=== PATIENT | male | born 1950 | race African-American/Black ===

== ENCOUNTER 2017-10-07 11:42 | Emergency (ER) | payer MEDICARE, OTHER ==
[~2017-10-07] VITALS: Ht 180.3 cm; Wt 78.2 kg
[2017-10-07] MEDS ORDERED: HYDR12CA PO (11:58)
[2017-10-07] MEDS ORDERED: FINA5TAB2 PO (11:58)
[2017-10-07] MEDS ORDERED: METOCLOPRAMIDE INJ 10MG/2ML VIAL (J2765) IV ONE (12:15)
[2017-10-07] MEDS ORDERED: ONDANSETRON 4MG/2ML VIAL (J2405) IV PRN (12:15)
[2017-10-07 12:47] LABS: BASO % 0.2 % (0.0-1.0); EOS # 0.2 10^3/uL (0.0-0.50); EOS % 3.4 % (0.0-3.0); LYMPH % 23.6 % (24.0-44.0); MEAN CORPUSCULAR HEMOGLOBIN 33.4 pg (27.0-33.0); MEAN CORPUSCULAR HGB CONC 34.2 g/dl (32.0-36.5); MEAN CORPUSCULAR VOLUME 97.7 fl (80.0-96.0); MONO # 0.3 10^3/uL (0.0-0.8); NEUTROPHILS # 2.9 10^3/uL (1.8-7.7); NEUTROPHILS % 65.8 % (36.0-66.0); PLATELET COUNT, AUTOMATED 252 10^3/uL (150-450); RED CELL DISTRIBUTION WIDTH 12.3 % (11.5-14.5); WHITE BLOOD COUNT 4.4 10^3/uL (4.0-10.0)
--- NOTE | 2017-10-07 12:50 | REP ---
CT Head without contrast HISTORY: Headache COMPARISON: None There is no intraparenchymal hemorrhage, acute infarct or mass. The ventricular system is normal in appearance. A small 7 mm Is evidence of subdural hematoma is present overlying the right frontal and parietal lobes. There is no midline shift. There is no fracture. Mucosal thickening is present in the ethmoid sinuses. IMPRESSION: There is a small 7 mm subacute subdural hematoma overlying the right frontal and parietal lobes. There is no midline shift. Results were called to the emergency room at 12:40 p.m. this date. Signed by Eric Nation MD 10/07/2017 12:41 P
[2017-10-07 13:20] LABS: INR 0.99
[2017-10-07 13:20] LABS: ALBUMIN 3.6 GM/DL (3.2-5.2); ALBUMIN/GLOBULIN RATIO 0.82 (1.00-1.93); ALKALINE PHOSPHATASE 48 U/L (45-117); ALT/SGPT 26 U/L (12-78); ANION GAP 11 MEQ/L (8-16); AST/SGOT 26 U/L (7-37); BILIRUBIN,TOTAL 0.3 MG/DL (0.2-1.0); BLOOD UREA NITROGEN 16 MG/DL (7-18); CALCIUM LEVEL 9.1 MG/DL (8.8-10.2); CARBON DIOXIDE LEVEL 26 MEQ/L (21-32); CHLORIDE LEVEL 105 MEQ/L (98-107); CREATININE FOR GFR 1.15 MG/DL (0.70-1.30); GLOMERULAR FILTRATION RATE > 60.0 (>49); GLUCOSE, FASTING 92 MG/DL (80-110); POTASSIUM SERUM 4.3 MEQ/L (3.5-5.1); SODIUM LEVEL 142 MEQ/L (136-145)
[2017-10-07] MEDS ORDERED: POTA20TA PO (13:22)
[2017-10-07] MEDS ORDERED: VIAG100T PO (13:24)
[2017-10-07] MEDS ORDERED: FLOM5CAP PO (13:24)
[2017-10-07] MEDS ORDERED: ASPI81CH32 PO (13:25)
[2017-10-07] MEDS ORDERED: D-101000 PO (13:26)
[2017-10-07] MEDS ORDERED: VITMTA PO (14:19)
[2017-10-07] MEDS ORDERED: PROHANCE 279.3MG/ML 15ML VIAL (A9576) As Ordered ONE (16:27)
[2017-10-07 18:15] VITALS: BP 165/66
--- NOTE | 2017-10-07 18:27 | REP ---
MRI BRAIN WITHOUT CONTRAST: 10/07/2017. Clinical history: Subacute subdural hematoma right frontoparietal region on CT earlier today. Comparison: CT 10/07/2017. Technique: Sagittal T1 with axial T1, T2, FLAIR, gradient echo, diffusion-weighted images with ADC mapping sequences. Findings. Lateral ventricles are midline, symmetric and without dilatation or displacement. Third and fourth ventricles are midline and also without dilatation. The smith-white junction differentiation was well maintained. The basal ganglia are symmetric and normal. There is a thin subacute right frontoparietal subdural hematoma, its maximum thickness is about 5 mm. On the FLAIR images, it is hyperintense; on the T2 images it is hypointense to CSF and it is slightly hyperintense to CSF on T1. Gradient-echo images show hyperintense signal in this collection. It subtly compresses the right frontal cortex posterior to the frontal pole. The sulci are only minimally effaced though and no midline shift is noted nor edema in the white matter tracts. There are a couple of punctate hyperintense T2 and FLAIR foci in the periventricular region left posterior frontal/anterior parietal region with a few other subcortical hyperintense T2 and FLAIR foci bilaterally in frontal parietal regions. These are nonspecific findings. There is no evidence of a subdural hematoma on the left. Cortical stripe is otherwise preserved. There is minimal atrophy temporal lobes, frontal poles. There is no vascular territory infarct, intraparenchymal hemorrhage, mass or mass effect. Brainstem shows no focal lesion and the cerebellum is without atrophy or mass. Basal cisterns are intact. Seventh/eighth cranial nerve complexes and the mastoids are symmetric and normal. Bilateral ethmoid sinus mucosal thickening with minimal frontal sinus mucosal thickening and the sphenoids show more mucosal thickening left than right, although minimal. Trace mucosal thickening of the right maxillary sinus while the left shows marked mucosal thickening. It is mostly filled with mucosal thickening and fluid. All this represents some acute and chronic sinusitis. The diffusion weighted images and the ADC MAP sequence show no evidence of restricted water diffusion or ischemia on an acute basis. Orbits and contents symmetric and grossly intact. The corpus callosum, optic chiasm and pituitary were unremarkable. Craniocervical junction shows no evidence for cerebellar tonsillar ectopia. Impression: 1. There is a small subacute subdural hematoma in the right frontoparietal region and it measured up to 5 mm in thickness, but not causing any mass effect or midline shift. It very minimally effaces some of the sulci of the peripheral margin of the right frontal pole. No edema in the white matter tracts, epidural, subarachnoid or other significant fluid/hemorrhage. 2. No ventriculomegaly with ventricular size normal and no midline shift. 3. A few scattered white matter hyperintense T2 and FLAIR foci as described above, most consistent with chronic small vessel white matter ischemic change. 4. Acute and chronic sinusitis with near complete opacification of the left maxillary sinus and minor mucosal thickening of all the other sinuses.5. Midline structures grossly unremarkable. Signed by Juan Wild MD 10/07/2017 08:47 P
--- NOTE | 2017-10-07 18:45 | REP ---
MRA HEAD WITHOUT AND WITH CONTRAST (MR VENOGRAM): 10/07/2017. Technique: Gradient echo [id number] exam performed without and with contrast. ProHance 15 ml IV given. Standard MRV reconstructions of the volume data set rotated about the longitudinal axis and horizontal axis of the brain before and after contrast administration. All source images are reviewed. Comparison: MRI brain without contrast, CT brain today. Clinical history: Subacute subdural hematoma right frontal parietal region. Evaluate for sinus thrombosis. Findings: On the precontrast images, there is poor flow detected in the left transverse sinus which is very small caliber by comparison to the right. However on the contrast images, there is much better flow evident, although it is still smaller diameter vein. No definite filling defects. The superior sagittal sinus is without filling defect. Cortical veins including parietal veins show flow. There is subtle mass effect on the anterior cortical veins from that subdural hematoma on the right. Straight sinus, vein of Jennifer and basal vein of Ashley are seen and unremarkable. Sigmoid sinus symmetric and grossly intact. Impression: 1. There is no compelling evidence for dural venous sinus thrombosis or cerebral vein thrombosis. Parietal and frontal cortical veins appear generally symmetric except that on the coronal views, some of these on the right side are slightly depressed by the subtle mass effect of the subdural hematoma. No midline shift. 2. Transverse sinus asymmetrically smaller left than right, particularly on the precontrast images with better demonstration of flow on the contrast study. Some of this is artifactual from in-plane artifact on coronal imaging. No acute thrombus. Signed by Juan Wild MD 10/07/2017 08:47 P
== END 2017-10-07 18:50 | disposition home or self-care (01) ==
LOC: M ED 11:42
DX: I62.02 Nontraumatic subacute subdural hemorrhage (principal); I10 Essential (primary) hypertension; M06.9 Rheumatoid arthritis, unspecified; Z79.899 Other long term (current) drug therapy; Z88.8 Allergy status to other drugs, medicaments and biological substances; Z87.891 Personal history of nicotine dependence
CPT/HCPCS: 70450; 70546; 70551; 80053; 85025; 85610; 85730; 87804; 87880; 96374; 96375; 99284; A9576; J2405; J2765

== ENCOUNTER 2017-10-10 10:18 | Observation (INO) | payer MEDICARE, OTHER ==
[~2017-10-10] VITALS: Ht 180.3 cm; Wt 78.2 kg
[~2017-10-10 10:18] MED LIST: ASPI81CH32 PO; D-101000 PO; FINA5TAB2 PO; FLOM5CAP PO; HYDR12CA PO; POTA20TA PO; VIAG100T PO; VITMTA PO
--- NOTE | 2017-10-10 11:35 | REP ---
REASON: Followup subdural hematoma. COMPARISON: 10/07/2017. The right sided frontoparietal subdural hematoma has increased in size with the frontal lobe component now having a maximal thickness of 15 mm, previously 7 mm, and the parietal component now having a maximal thickness of 10mm, previously 7 mm. The density of the subdural fluid collection has not changed significantly. There is no shift of the midline structures. The ventricles and sulci are unchanged. IMPRESSION: Slightly increase in size of the right frontoparietal subdural hematoma as described above. Signed by Tomas Herron DO 10/10/2017 12:02 P
[2017-10-10] MEDS ORDERED: MORPHINE 2 MG/ML 1ML SYRINGE IV PRN (14:30)
[2017-10-10] MEDS: ACETAMINOPHEN TAB 650MG DOSE (2X325MG) PO SCH ×2 (14:45→21:33)
[2017-10-10] MEDS: ONDANSETRON 4MG/2ML VIAL (J2405) IV SCH ×2 (14:45→21:33)
[2017-10-10 14:49] LABS: MEAN CORPUSCULAR HEMOGLOBIN 32.9 pg (27.0-33.0); MEAN CORPUSCULAR HGB CONC 34.4 g/dl (32.0-36.5); MEAN CORPUSCULAR VOLUME 95.6 fl (80.0-96.0); PLATELET COUNT, AUTOMATED 262 10^3/uL (150-450); RED CELL DISTRIBUTION WIDTH 12.5 % (11.5-14.5)
[2017-10-10 15:01] LABS: INR 0.93
[2017-10-10 15:10] VITALS: BP 150/72
[2017-10-10 15:10] LABS: ALBUMIN 3.4 GM/DL (3.2-5.2); ALBUMIN/GLOBULIN RATIO 0.83 (1.00-1.93); ALKALINE PHOSPHATASE 49 U/L (45-117); ALT/SGPT 22 U/L (12-78); ANION GAP 8 MEQ/L (8-16); AST/SGOT 21 U/L (7-37); BILIRUBIN,DIRECT < 0.1 MG/DL (0.0-0.2); BILIRUBIN,TOTAL 0.2 MG/DL (0.2-1.0); BLOOD UREA NITROGEN 16 MG/DL (7-18); CALCIUM LEVEL 9.1 MG/DL (8.8-10.2); CARBON DIOXIDE LEVEL 27 MEQ/L (21-32); CHLORIDE LEVEL 105 MEQ/L (98-107); CREATININE FOR GFR 1.08 MG/DL (0.70-1.30); GLOMERULAR FILTRATION RATE > 60.0 (>49); GLUCOSE, FASTING 93 MG/DL (80-110); SODIUM LEVEL 140 MEQ/L (136-145); TOTAL PROTEIN 7.5 GM/DL (6.4-8.2)
[2017-10-10] MEDS ORDERED: VITA100066 PO (16:18)
[2017-10-10] MEDS ORDERED: ASPI1TAB PO (16:18)
[2017-10-10 18:00] VITALS: BP 159/79
--- NOTE | 2017-10-10 18:12 | CR.PDOC ---
[facility] Consultation Consultation DATE OF CONSULTATION: Oct 10, 2017 at 10:18 PRIMARY CARE PHYSICIAN: MD Chris ([facility]) RN ONCOLOGY CLINICAL: [facility] Francine REFERRING PROVIDER: Dr. Rivas ATTENDING PHYSICIAN: Dr. Aguayo REASON FOR CONSULTATION/CHIEF COMPLAINT: MEDICAL MANAGEMENT. HISTORY OF PRESENT ILLNESS: 67-year-old -[place] male who's had vague complaints for the last 1-2 months. He states over the last 2 weeks, however, he 's had some vague symptoms of pressure and heat around his for head in a bandlike sensation on both sides. When I ask him to describe this sensation further. He states it feels like it's superintendent service both temples. He doesn't specifically describe any blurry vision or change in vision, but he states that when he takes his glasses off. He does notice that he has a little bit more trouble than usual with his visual acuity. His last eye examination was a year ago he was unable to account whether they had told him if he had had any signs of cataracts or glaucoma. He describes having some vague symptoms of chills, intermittent night sweats. No fever, nausea with no vomiting, decreased appetite, questionable weight loss approximately 5 pounds in the last month. He also describes vague symptoms of decreased energy during the day, but he denies any increased daytime somnolence and denies any insomnia at night. He also describes having intermittent symptoms of dizziness, but nothing that appears to be prolonged. He has had no mechanical falls, no loss of consciousness and no head trauma that he can recall. He does have an underlying history of rheumatoid arthritis which he was diagnosed with 3-4 years ago. He is vague on his rheumatoid/disease altering medications. He also describes having numbness and cold hands and fingers, which sounds vaguely like RAYNAUD PHENOMENON. All in all, his symptomatology appears to be vague at best. He is being admitted this evening by the neurosurgical service for observation of his subdural hematoma which may have increased from previously. And again, he denies any history of trauma and there was no sign of midline shift. Hospitalist was consulted for medical management. ALLERGIES: Please see below. HOME MEDICATIONS: Please see below. PAST MEDICAL HISTORY: Rheumatoid arthritis Hypertension. Vitamin D deficiency. BPH with erectile dysfunction. PAST SURGICAL HISTORY: Colonoscopy 6-8 months ago which he informs me was unremarkable FAMILY HISTORY: Father is , history of diabetes Mother is living with history of diabetes. Siblings: 2 sisters questionable GI issues. 3 sons and 1 daughter, all appear to be healthy SOCIAL HISTORY: Former smoker. He informs me quit smoking 15 years ago. Alcohol: He drinks 2 glasses of wine with his evening meal every day. Denies any current illicit drug use. He does inform me, however, that many years ago. He smoked marijuana. He denies sick contacts. No recent travel Informs me he is up-to-date on his flu vaccine as well, pneumonia vaccine.[facility] REVIEW OF SYSTEMS: CONSTITUTIONAL: Per HPI. HEENT: Per HPI CARDIOVASCULAR: No chest pain, palpitations, paroxysmal nocturnal dyspnea or lower extremity edema RESPIRATORY: No cough, productive sputum, wheeze or hemoptysis GENITOURINARY: No dysuria, frequency, or discharge MUSCULOSKELETAL: No bone, muscle or joint pain. GASTROINTESTINAL: Vague symptoms of nausea, without vomiting. He states he's noticed a decrease in appetite. Bowel movements are regular without hematochezia or melena. No bladder or bowel incontinence. SKIN: No complaint of lesions, abrasions or rashes NEUROLOGICAL: Per HPI, however, he denies headaches, paraesthesias or paralysis PSYCHIATRIC: No depression, anxiety, audiovisual hallucinations. No suicidal ideations. ENDOCRINE: Denies history of diabetes or thyroid disorder. No history of endocrine abnormalities. HEMATOLOGIC/ONCOLOGIC: Denies bleeding or bruising disorder. No prior history of sickle cell disease. Denies history of VTE. LYMPHATIC: No lumps, bumps or swelling of neck, axilla or groin. No night sweats or weight loss. PHYSICAL EXAMINATION: VITAL SIGNS: Please see below. GENERAL: NAD, A&OX3, Pleasant HEENT: PERRLA, throat clear, neck supple, no JVD CARDIOVASCULAR: RRR RESPIRATORY: CTA Bilaterally ABDOMINAL: soft, NT/ND normoactive bowel sounds EXTREMITIES: no edema/no calf tenderness NEUROLOGICAL: CN'S II-XII grossly intact PSYCHOLOGICAL: negative LABORATORY DATA: Please see below. IMPRESSION: 67-year-old male being admitted by neurosurgical service for observation of nontraumatic subdural hematoma. He has an underlying history of hypertension, rheumatoid arthritis, BPH, and vitamin D deficiency. I did add on a sedimentation rates, which was mildly elevated and I do not at this point believe he has any giant cell arteritis. Nonetheless I've asked pharmacy to reconcile his medications he gets through the [facility]. The patient tells me that he believes he is on some disease modifying anti-rheumatoid drug, however, the best we were able to find was a prescription of hydroxychloroquine in 2014, but nothing actively at this time. PROBLEM LIST: 1. Nontraumatic subdural hematoma, managed by the neurosurgical service 2. Vague symptoms and sequelae of decreased energy and appetite, but no signs of cachexia, or lymphadenopathy. 3. History of rheumatoid arthritis. He follows at the [facility] for 4. Hypertension: Blood pressure is slightly elevated today, however, in light of his subdural hematoma, he can continue on his home medications and I'll start on low dose Procardia with hold for sbp<140. Defer further blood pressure goals to neurosurgery. 5. Vitamin D deficiency on supplementation. 6. History of BPH with erectile dysfunction: No current issues with voiding. 7. Symptoms of Raynaud's phenomenon: may benefit from low dose nicardipine. RECOMMENDATION: Will recommend that we hold his aspirin, and request further medication reconciliation from the [facility] to determine if he is actually on any disease modifying drugs for his rheumatoid arthritis. I'll take the liberty to start him on low dose nifedipine with hold parameter if systolic blood pressure less than 140. Would request that specific blood pressure parameters be further delineated by neurosurgery. Regarding his symptomatology related to nontraumatic subdural hematoma: We'll defer further to neurosurgical service. Again, he has vague symptoms of decreased appetite, intermittent dizziness, fatigue/decreased energy without increased daytime somnolence. Reviewing his labs. His CBC is unremarkable. Sedimentation rate is mildly elevated, INR is normal, PTT Normal, chemistry with liver enzymes are unremarkable, normal albumin. I did add on a thyroid profile. Otherwise, his lab workup and physical examination was relatively unremarkable. At this juncture, I did recommend that we observe him overnight for subdural hematoma. See if we can get better control of his blood pressure within parameters to be set by neurosurgery. And he should follow-up with his primary care providers an outpatient for any further workup regarding his vague symptomatology as outlined above. DVT PROPHYLAXIS: Recommend TEDS and sequentials, and avoid any anticoagulation or heparin products. DISPOSITION: Per neurosurgery. Thank you for the consult. If any further questions should arise please contact the hospitalist service. Tomorrow morning rounding physician will be Dr. Aguayo. Vital Signs/I&O Vital Signs Date Time Temp Pulse Resp B/P (MAP) Pulse Ox O2 Delivery O2 Flow Rate FiO2 10/10/17 14:43 99.5 65 20 99 157/72 (100) 10/10/17 10:19 Room Air Laboratory Data Labs 24H Laboratory Tests 2 10/10/17 14:38: Nucleated Red Blood Cells % (auto) 0.0, Erythrocyte Sedimentation Rate 34H, Prothrombin Time 12.5, Prothromb Time International Ratio 0.93, Activated Partial Thromboplast Time 31.0, Anion Gap 8, Glomerular Filtration Rate > 60.0, Calcium Level 9.1, Aspartate Amino Transf (AST/SGOT) 21, Alanine Aminotransferase (ALT/SGPT) 22, Alkaline Phosphatase 49, Total Bilirubin 0.2, Direct Bilirubin < 0.1, Total Protein 7.5, Albumin 3.4, Albumin/Globulin Ratio 0.83L CBC/BMP Laboratory Tests 10/10/17 14:38 Red Blood Count 4.29 L, Mean Corpuscular Volume 95.6, Mean Corpuscular Hemoglobin 32.9, Mean Corpuscular Hemoglobin Concent 34.4, Red Cell Distribution Width 12.5 Allergies Coded Allergies: Unclassified Drugs (Verified Adverse Reaction, Mild, UNKNOWN RHEUMATOID ARTHRITIS MED CAUSES ACHES, 10/07/17) Home Medications Scheduled Aspirin (Aspirin 81) 81 Mg Tab, 81 MG PO DAILY, (Reported) Cholecalciferol (Vitamin D) 1,000 Unit Tab, 1,000 UNIT PO DAILY, (Reported) Finasteride (Finasteride) 5 Mg Tab, 5 MG PO DAILY, (Reported) Hydrochlorothiazide (Hydrochlorothiazide) 12.5 Mg Cap, 12.5 MG PO DAILY, ( Reported) Potassium Chloride (Klor-Con M20) 20 Meq Tabcr, 20 MEQ PO DAILY, (Reported) Tamsulosin Hydrochloride (Flomax) 0.4 Mg Cap, 0.4 MG PO DAILY, (Reported) Scheduled PRN Sildenafil Citrate (Viagra) 100 Mg Tab, 100 MG PO PRN PRN for ERECTILE DYSFUNCTION, (Reported) GEORGIE ONEILL DO Oct 10, 2017 18:12
[2017-10-10 18:32] LABS: T UPTAKE 34 % (33-40); THYROXINE (T4) 6.9 UG/DL (4.5-12.0)
[2017-10-10] MEDS ORDERED: niCARdipine 20 MG CAP PO SCH (21:00)
[2017-10-10] MEDS: NIFEdipine 10 MG CAP PO SCH (21:33)
[2017-10-10 22:00] VITALS: BP 144/70
[2017-10-11 02:00] VITALS: BP 136/73
[2017-10-11] MEDS: ONDANSETRON 4MG/2ML VIAL (J2405) IV SCH ×2 (03:52→09:00)
[2017-10-11] MEDS: ACETAMINOPHEN TAB 650MG DOSE (2X325MG) PO SCH ×2 (03:53→10:27)
[2017-10-11 05:49] LABS: MEAN CORPUSCULAR HEMOGLOBIN 33.3 pg (27.0-33.0); MEAN CORPUSCULAR HGB CONC 34.7 g/dl (32.0-36.5); MEAN CORPUSCULAR VOLUME 96.1 fl (80.0-96.0); PLATELET COUNT, AUTOMATED 245 10^3/uL (150-450); RED CELL DISTRIBUTION WIDTH 12.4 % (11.5-14.5); WHITE BLOOD COUNT 3.6 10^3/uL (4.0-10.0)
[2017-10-11 06:00] VITALS: BP 123/68
[2017-10-11 06:15] LABS: ALBUMIN/GLOBULIN RATIO 0.71 (1.00-1.93); ALKALINE PHOSPHATASE 39 U/L (45-117); ALT/SGPT 17 U/L (12-78); ANION GAP 7 MEQ/L (8-16); AST/SGOT 18 U/L (7-37); BILIRUBIN,TOTAL 0.5 MG/DL (0.2-1.0); BLOOD UREA NITROGEN 11 MG/DL (7-18); CALCIUM LEVEL 8.6 MG/DL (8.8-10.2); CARBON DIOXIDE LEVEL 28 MEQ/L (21-32); CHLORIDE LEVEL 105 MEQ/L (98-107); GLOMERULAR FILTRATION RATE > 60.0 (>49); GLUCOSE, FASTING 86 MG/DL (80-110); POTASSIUM SERUM 3.8 MEQ/L (3.5-5.1); SODIUM LEVEL 140 MEQ/L (136-145); TOTAL PROTEIN 7.2 GM/DL (6.4-8.2)
[2017-10-11 06:21] LABS: ERYTHROCYTE SEDIMENTATION RATE 34 mm/hr (0-20)
[2017-10-11 09:00] VITALS: BP 146/74
[2017-10-11] MEDS ORDERED: POTASSIUM CHLORIDE 10 MEQ SR TABLET PO SCH (09:00)
[2017-10-11] MEDS: NIFEdipine 10 MG CAP PO SCH (09:00)
[2017-10-11 10:15] VITALS: BP 146/74
[2017-10-11] MEDS ORDERED: Acetaminophen Tab PO (13:34)
[2017-10-11] MEDS ORDERED: DEXA1TA PO (13:34)
[2017-10-11] MEDS ORDERED: RANI150C PO (13:34)
--- NOTE | 2017-10-11 13:39 | IPNPDOC ---
Text Note Date of Service The patient was seen on 10/11/17. NOTE Patient seen and examined. Refusing nifedipine this morning. Slept well last night, felt well when he awoke. [facility] No [facility] pain, no focal weakness. Dr Brewer plans to discharge the patient. I have agreed to complete the electronic process on his behalf. S[facility], followup with him and restart aspirin per his instructions. VS,Fishbone, I+O VS, Fishbone, I+O Laboratory Tests 10/10/17 14:38 Red Blood Count 4.29 L, Mean Corpuscular Volume 95.6, Mean Corpuscular Hemoglobin 32.9, Mean Corpuscular Hemoglobin Concent 34.4, Red Cell Distribution Width 12.5 10/11/17 05:28 Red Blood Count 4.08 L, Mean Corpuscular Volume 96.1 H, Mean Corpuscular Hemoglobin 33.3 H, Mean Corpuscular Hemoglobin Concent 34.7, Red Cell Distribution Width 12.4, Calcium Level 8.6 L, Aspartate Amino Transf (AST/SGOT) 18, Alanine Aminotransferase (ALT/SGPT) 17, Alkaline Phosphatase 39 L, Total Bilirubin 0.5 #, Total Protein 7.2, Albumin 3.0 L Vital Signs Date Time Temp Pulse Resp B/P (MAP) Pulse Ox O2 Delivery O2 Flow Rate FiO2 10/11/17 10:15 97.6 67 19 146/74 (98) 99 Room Air I&O- Last 24 Hours up to 6 AM 10/12/17 06:00 Intake Total 240 ml Balance 240 ml JIMMIE BOWEN MD Oct 11, 2017 13:39
== END 2017-10-11 14:41 | disposition home or self-care (01) ==
LOC: M ED 10:18 → INTOOBSV 14:00 → M ED INP 14:00 → M MSPAV 15:09
PROVIDERS: ADMIT Neurological Surgery; ATTEND Neurological Surgery
DX: I62.01 Nontraumatic acute subdural hemorrhage (principal); M06.9 Rheumatoid arthritis, unspecified; I10 Essential (primary) hypertension; E55.9 Vitamin D deficiency, unspecified; N40.0 Benign prostatic hyperplasia without lower urinary tract symptoms; N52.9 Male erectile dysfunction, unspecified; Z88.8 Allergy status to other drugs, medicaments and biological substances; Z79.82 Long term (current) use of aspirin; Z79.899 Other long term (current) drug therapy; Z87.891 Personal history of nicotine dependence
CPT/HCPCS: 36415; 70450; 70546; 70551; 80048; 80053; 80076; 84436; 84443; 84479; 85025; 85027; 85610; 85652; 85730; 87804; 87880; 96374; 96375; 96376; 99284; 99285; A9576; G0378; J2405; J2765

== ENCOUNTER 2018-12-24 06:57 | Emergency (ER) | payer MEDICARE, OTHER ==
[~2018-12-24] VITALS: Ht 180.3 cm; Wt 72.7 kg
[~2018-12-24 06:57] MED LIST changes: +ASPI1TAB PO; +Acetaminophen Tab PO; +DEXA1TA PO; +FLOM0.4C39 PO; -FLOM5CAP PO; +KLOR20TA42 PO; -POTA20TA PO; +RANI150C PO; +VITA100066 PO
[2018-12-24] MEDS ORDERED: LISI10TA4 PO (07:09)
[2018-12-24] MEDS ORDERED: ACETAMINOPHEN 325 MG TAB PO ONE (07:45)
[2018-12-24 08:19] LABS: BASO % 0.3 % (0.0-1.0); EOS # 0.2 10^3/uL (0.0-0.50); EOS % 6.4 % (0.0-3.0); HEMATOCRIT 42.3 % (42.0-52.0); HEMOGLOBIN 14.2 g/dl (13.5-17.5); LYMPH # 0.7 10^3/uL (1.5-4.5); LYMPH % 19.2 % (24.0-44.0); MEAN CORPUSCULAR HEMOGLOBIN 32.6 pg (27.0-33.0); MEAN CORPUSCULAR HGB CONC 33.6 g/dl (32.0-36.5); MONO # 0.3 10^3/uL (0.0-0.8); NEUTROPHILS # 2.2 10^3/uL (1.8-7.7); NEUTROPHILS % 64.8 % (36.0-66.0); PLATELET COUNT, AUTOMATED 214 10^3/uL (150-450); RED BLOOD COUNT 4.36 10^6/uL (4.30-6.10); WHITE BLOOD COUNT 3.4 10^3/uL (4.0-10.0)
[2018-12-24 08:43] LABS: ERYTHROCYTE SEDIMENTATION RATE 32 mm/hr (0-20)
[2018-12-24 08:44] LABS: HEMOGLOBIN A1c 5.3 %
--- NOTE | 2018-12-24 08:48 | REPVR ---
EXAM: CT Head Without Contrast EXAM DATE/TIME: 12/24/2018 7:50 AM CLINICAL HISTORY: 68 years old, male; Pain; Headache; Headache not specified; Additional info: Frontal headache, blurred vision, fatigue, HX subdur hematom TECHNIQUE: Axial computed tomography images of the head/brain without contrast. All CT scans at this facility use at least one of these dose optimization techniques: automated exposure control; mA and/or kV adjustment per patient size (includes targeted exams where dose is matched to clinical indication); or iterative reconstruction. COMPARISON: CT Head without contrast 10/10/2017 10:42 AM FINDINGS: Brain: Residual mixed age extra-axial hemorrhage over the right hemispheric convexity predominately over the right frontal lobe. The maximum diameter is similar to minimally decreased now measuring 1.2 CM. Small rim of higher attenuating hemorrhage more laterally similar to the previous CT could not exclude a component of more recent acute hemorrhage. Persistent mild effacement of adjacent cortical sulci. Midline shift: No midline shift. Ventricles: Normal. No ventriculomegaly. Bones/joints: Unremarkable. No acute fracture. Sinuses: Lower scan images demonstrate mucosal thickening of ethmoid, sphenoid and frontal sinuses. Mastoid air cells: Visualized mastoid air cells are unremarkable. No mastoid effusion. Soft tissues: Unremarkable. IMPRESSION: 1. Similar appearance of mixed age subdural hemorrhage over the right hemisphere predominately over the frontal lobe. Findings are most likely subacute to chronic although very small rim of redevelopment of acute hemorrhage is not entirely excluded. 2. Sinusitis. Electronically signed by: Radha Chandra On 12/24/2018 08:47:58 AM
[2018-12-24 08:51] LABS: ALBUMIN 3.3 GM/DL (3.2-5.2); ALT/SGPT 24 U/L (12-78); BILIRUBIN,DIRECT 0.1 MG/DL (0.0-0.2); BILIRUBIN,TOTAL 0.4 MG/DL (0.2-1.0); BLOOD UREA NITROGEN 15 MG/DL (7-18); C REACTIVE PROTEIN QUANTITATIV < 0.30 MG/DL (0.00-0.30); CALCIUM LEVEL 8.6 MG/DL (8.8-10.2); CARBON DIOXIDE LEVEL 27 MEQ/L (21-32); CHLORIDE LEVEL 105 MEQ/L (98-107); CREATININE FOR GFR 1.19 MG/DL (0.70-1.30); FREE T4 0.91 NG/DL (0.76-1.46); GLOMERULAR FILTRATION RATE > 60.0 (>42); GLUCOSE, FASTING 101 MG/DL (70-100); POTASSIUM SERUM 4.2 MEQ/L (3.5-5.1); SODIUM LEVEL 139 MEQ/L (136-145); TOTAL PROTEIN 7.2 GM/DL (6.4-8.2)
[2018-12-24] MEDS ORDERED: AUGM875T28 PO (10:16)
[2018-12-24 10:27] VITALS: BP 143/68
--- NOTE | 2018-12-27 13:19 | ED PDOC ---
[facility]-Depart[facility] Follow[facility]Up [facility] and [facility] Priest faxed formal report of ct head for fu Jennifer Gonsales MD Dec 27, 2018 13:19
== END 2018-12-24 10:28 | disposition home or self-care (01) ==
LOC: M ED 06:57
DX: J01.90 Acute sinusitis, unspecified (principal); I62.00 Nontraumatic subdural hemorrhage, unspecified; I10 Essential (primary) hypertension

== ENCOUNTER 2020-11-23 13:36 | Emergency (ER) | payer MEDICARE, OTHER ==
[~2020-11-23] VITALS: Ht 180.3 cm; Wt 77.6 kg
[~2020-11-23 13:36] MED LIST changes: -ASPI1TAB PO; -ASPI81CH32 PO; +ASPI81CH33 PO; +ASPI81TA26 PO; +AUGM875T28 PO; +LISI10TA22 PO
[2020-11-23] MEDS ORDERED: SILD100T (13:53)
[2020-11-23] MEDS ORDERED: ANTI1CRE6 (13:53)
[2020-11-23 14:19] LABS: BASO % 0.3 % (0.0-1.0); EOS # 0.2 10^3/uL (0.0-0.5); EOS % 4.6 % (0.0-3.0); HEMATOCRIT 42.6 % (42.0-52.0); HEMOGLOBIN 13.7 g/dl (13.5-17.5); LYMPH # 0.9 10^3/uL (1.5-5.0); LYMPH % 26.1 % (24.0-44.0); MEAN CORPUSCULAR HEMOGLOBIN 31.6 pg (27.0-33.0); MEAN CORPUSCULAR HGB CONC 32.2 g/dl (32.0-36.5); MEAN CORPUSCULAR VOLUME 98.4 fl (80.0-96.0); MONO # 0.4 10^3/uL (0.0-0.8); MONO % 10.3 % (0.0-5.0); NEUTROPHILS % 58.4 % (36.0-66.0); PLATELET COUNT, AUTOMATED 237 10^3/uL (150-450); RED BLOOD COUNT 4.33 10^6/uL (4.30-6.10); WHITE BLOOD COUNT 3.5 10^3/uL (4.0-10.0)
--- NOTE | 2020-11-23 14:38 | REP ---
INDICATION: blurred vision/head/hx of bleed. COMPARISON: Multiple the latest 12/24/2018 TECHNIQUE: 4.5 mm contiguous transaxial sections were obtained from the skull base to the cerebral convexities with thin cuts through the posterior fossa without the administration of intravenous contrast. FINDINGS: The ventricles and sulci are consistent with the patient's age. There is a lenticular shaped mixed density fluid collection over the right frontal lobe and frontal parietal region. This is decreased in size when compared to prior exam. The density of this fluid collection is less than the density of acute blood.. There is a mild compressive deformity upon the right frontal lobe but without a shift in the midline structures and less when compared to the prior exam. There is no evidence of an acute intracranial hemorrhagic or non hemorrhagic event. There is no significant change in appearance of the deep cerebral white matter. There is no change in appearance the posterior fossa.. The orbital and petrous structures, cerebellopontine angles, and posterior fossa are unremarkable. The sella turcica, cavernous, and paracavernous structures are essentially unremarkable. The visualized portions of the paranasal sinuses show mild mucosal thickening decreased from the prior exam and without abnormal air-fluid levels. The mastoid air cells are clear. Images of the skull base show no gross abnormality. IMPRESSION: There is evidence of an old right frontal epidural hematoma as described above. There is no evidence of an acute intracranial hemorrhagic or non hemorrhagic event. Other findings as described above. <Electronically signed by Tomas Herron > 11/23/20 [id number]
[2020-11-23 14:40] LABS: INR 0.93; PROTHROMBIN TIME 12.7 SECONDS (12.5-14.3)
[2020-11-23 14:41] LABS: PARTIAL THROMBOPLASTIN TIME 31.8 SECONDS (24.2-38.5)
[2020-11-23 15:07] LABS: ALBUMIN 3.4 GM/DL (3.2-5.2); ALT/SGPT 23 U/L (12-78); BILIRUBIN,TOTAL 0.4 MG/DL (0.2-1.0); BLOOD UREA NITROGEN 17 MG/DL (7-18); CALCIUM LEVEL 9.3 MG/DL (8.8-10.2); CARBON DIOXIDE LEVEL 27 MEQ/L (21-32); CHLORIDE LEVEL 106 MEQ/L (98-107); CREATININE FOR GFR 1.29 MG/DL (0.70-1.30); GLOMERULAR FILTRATION RATE > 60.0 (>42); GLUCOSE, FASTING 84 MG/DL (70-100); POTASSIUM SERUM 5.1 MEQ/L (3.5-5.1); SODIUM LEVEL 138 MEQ/L (136-145); TOTAL PROTEIN 8.2 GM/DL (6.4-8.2)
[2020-11-23 15:40] LABS: ERYTHROCYTE SEDIMENTATION RATE 38 mm/hr (0-20)
[2020-11-23] MEDS ORDERED: KETOROLAC 30 MG/ML 1ML VIAL IV ONE (15:45)
[2020-11-23] MEDS ORDERED: METOCLOPRAMIDE INJ 10MG/2ML VIAL (J2765 PER 1) IV ONE (15:45)
[2020-11-23] MEDS ORDERED: MAG SULF 1GM/100ML (MAG RUN) 1 GM in IV 1 EA IV ONE (17:00)
[2020-11-23] MEDS ORDERED: ACETAMINOPHEN 500 MG TAB PO ONE (17:00)
[2020-11-23] MEDS ORDERED: NS 1,000 ML IV ONE (17:00)
[2020-11-23] MEDS: diphenhydrAMINE 50MG/ML VIAL (J1200) IV ONE ×2 (17:12→17:25)
[2020-11-23] MEDS ORDERED: ACET1TAB55 PO (17:48)
[2020-11-23] MEDS ORDERED: REGL5TAB2 PO (17:48)
[2020-11-23] MEDS ORDERED: AZEL1SPR3 NARES (17:48)
[2020-11-23 18:24] VITALS: BP 167/81
--- NOTE | 2020-11-24 08:13 | ECGEPIP ---
[facility] - ED Test Date: 2020-11-23 Pat Name: HANSA BAILON Department: Room: - Gender: Male Video Presentation Operator: JOSE : 1950 Requested By: JIMMIE Garcia Order Number: [id number] Reading MD: Jefferson Cartwright Measurements Intervals [place] Rate: 58 P: 65 IA: 167 QRS: 8 QRSD: 86 T: 48 QT: 372 QTc: 368 Interpretive Statements SINUS BRADYCARDIA POOR R WAVE PROGRESSION NO PRIORS FOR COMPARISON Electronically Signed on 11-24-2020 8:12:56 EST by Jefferson Cartwright
== END 2020-11-23 18:25 | disposition home or self-care (01) ==
LOC: M ED 13:36
DX: R51.9 Headache, unspecified (principal); I10 Essential (primary) hypertension; R00.1 Bradycardia, unspecified; Z87.891 Personal history of nicotine dependence
CPT/HCPCS: 36415; 70450; 80053; 85025; 85610; 85652; 85730; 86140; 93005; 96365; 96375; 99284; J1885; J2765; J3475

== ENCOUNTER → 2021-06-28 | Outpatient (CLI) | payer OTHER, MEDICARE ==
[~2021-06-28] MED LIST changes: +ACET1TAB55 PO; +ANTI1CRE6; +AZEL1SPR3 NARES; +REGL5TAB2 PO; +SILD100T
== END ==
LOC: M LABSMTC 09:46
PROVIDERS: ATTEND Anesthesiology
DX: Z01.812 Encounter for preprocedural laboratory examination (principal); Z20.822 Contact with and (suspected) exposure to COVID-19

== ENCOUNTER 2021-07-03 06:42 | Day surgery (SDC) | payer OTHER ==
[~2021-07-03] VITALS: Ht 177.8 cm; Wt 71.7 kg
[~2021-07-03 06:42] MED LIST changes: +NS 1,000 ML IV ONE
[2021-07-03] MEDS ORDERED: propofoL 200 MG/20 ML VIAL As Ordered ONE ×2 (07:17→07:45)
--- NOTE | 2021-07-03 08:10 | ROOR ---
Patient Name: Rudi Abarca Procedure Date: 07/03/2021 7:35 AM Date of : 1950 Age: 71 Room: [facility] Gender: Male Note Status: Finalized Procedure: Colonoscopy Indications: Surveillance: Personal history of adenomatous polyps on last colonoscopy 5 years ago Providers: Ashu Muñoz MD Referring MD: [facility], [facility], Admin. Requesting Provider: Medicines: Monitored Anesthesia Care Complications: No immediate complications. Procedure: Pre-Anesthesia Assessment: - Prior to the procedure, a History and Physical was performed, and patient medications and allergies were reviewed. The patient is competent. The risks and benefits of the procedure and the sedation options and risks were discussed with the patient. All questions were answered and informed consent was obtained. Patient identification and proposed procedure were verified by the physician, the nurse and the vending route servicer in the endoscopy suite. Mental Status Examination: alert and oriented. Airway Examination: normal oropharyngeal airway and neck mobility. Prophylactic Antibiotics: The patient does not require prophylactic antibiotics. Prior Anticoagulants: The patient has taken no previous anticoagulant or antiplatelet agents. ASA Grade Assessment: II - A patient with mild systemic disease. After reviewing the risks and benefits, the patient was deemed in satisfactory condition to undergo the procedure. The anesthesia plan was to use monitored anesthesia care (MAC). Immediately prior to administration of medications, the patient was re-assessed for adequacy to receive sedatives. The heart rate, respiratory rate, oxygen saturations, blood pressure, adequacy of pulmonary ventilation, and response to care were monitored throughout the procedure. The physical status of the patient was re-assessed after the procedure. The Colonoscope was introduced through the anus and advanced to the cecum, identified by appendiceal orifice and ileocecal valve. The colonoscopy was performed without difficulty. The patient tolerated the procedure well. The quality of the bowel preparation was good. Findings: Hemorrhoids were found on perianal exam. Multiple medium-mouthed diverticula were found in the entire colon. There was a small lipoma, at the hepatic flexure. Impression: - Hemorrhoids found on perianal exam. - Diverticulosis in the entire examined colon. - Small lipoma at the hepatic flexure. - No specimens collected. Recommendation: - Discharge patient to home. - Resume previous diet. - Continue present medications. - Repeat colonoscopy in 5 years for surveillance. Procedure Code(s): --- Professional --- G0105, Colorectal cancer screening; colonoscopy on individual at high risk Diagnosis Code(s): --- Professional --- Z86.010, Personal history of colonic polyps K64.9, Unspecified hemorrhoids D17.5, Benign lipomatous neoplasm of intra-abdominal organs K57.30, Diverticulosis of large intestine without perforation or abscess without bleeding CPT copyright 2019 [employer]. All rights reserved. The codes documented in this report are preliminary and upon java software architect review may be revised to meet current compliance requirements. Ashu Muñoz MD Ashu Muñoz MD 07/03/2021 8:09:24 AM Electronically signed by Ashu Muñoz MD Number of Addenda: 0 Note Initiated On: 07/03/2021 7:35 AM Estimated Blood Loss: Estimated blood loss: none.
[2021-07-03 08:25] VITALS: BP 158/73
== END 2021-07-03 19:32 | disposition home or self-care (01) ==
LOC: M OPP 06:42
PROVIDERS: ATTEND Surgery
DX: Z12.11 Encounter for screening for malignant neoplasm of colon (principal); Z86.010 Personal history of colon polyps; D17.5 Benign lipomatous neoplasm of intra-abdominal organs; K57.30 Diverticulosis of large intestine without perforation or abscess without bleeding; K64.0 First degree hemorrhoids; Z79.82 Long term (current) use of aspirin; Z79.899 Other long term (current) drug therapy; Z87.891 Personal history of nicotine dependence

== ENCOUNTER 2022-02-16 08:44 | Emergency (ER) | payer OTHER ==
[~2022-02-16] VITALS: Ht 180.3 cm; Wt 79.0 kg
[~2022-02-16 08:44] MED LIST changes: -KLOR20TA42 PO; -NS 1,000 ML IV ONE; +POTA-141 PO
[2022-02-16 10:28] LABS: BASO % 0.3 % (0.0-1.0); EOS # 0.1 10^3/uL (0.0-0.5); EOS % 4.1 % (0.0-3.0); HEMATOCRIT 43.7 % (42.0-52.0); HEMOGLOBIN 14.3 g/dl (13.5-17.5); LYMPH # 0.8 10^3/uL (1.5-5.0); LYMPH % 24.5 % (24.0-44.0); MEAN CORPUSCULAR HEMOGLOBIN 32.7 pg (27.0-33.0); MEAN CORPUSCULAR HGB CONC 32.7 g/dl (32.0-36.5); MONO # 0.3 10^3/uL (0.0-0.8); MONO % 10.3 % (2.0-8.0); NEUTROPHILS # 1.9 10^3/uL (1.5-8.5); NEUTROPHILS % 60.5 % (36.0-66.0); PLATELET COUNT, AUTOMATED 214 10^3/uL (150-450); RED BLOOD COUNT 4.37 10^6/uL (4.30-6.10); WHITE BLOOD COUNT 3.2 10^3/uL (4.0-10.0)
[2022-02-16 11:41] LABS: RSV AMPLIFICATION NEGATIVE (NEGATIVE)
[2022-02-16 12:47] LABS: APPEARANCE, URINE HAZY (CLEAR); BACTERIA, URINE AUTO NEGATIVE (NEGATIVE); BILIRUBIN, URINE AUTO NEGATIVE (NEGATIVE); BLOOD, URINE BLOOD NEGATIVE (NEGATIVE); COLOR, URINE YELLOW (YELLOW); GLUCOSE, URINE (UA) AUTO NEGATIVE (NEGATIVE); KETONE, URINE AUTO NEGATIVE (NEGATIVE); LEUKOCYTE ESTERASE, URINE AUTO NEGATIVE (NEGATIVE); MUCUS, URINE SMALL (NEGATIVE); NITRITE, URINE AUTO NEGATIVE (NEGATIVE); PROTEIN, URINE AUTO NEGATIVE (NEGATIVE); RBC, URINE AUTO 0 /HPF (0-3); SPECIFIC GRAVITY URINE AUTO 1.014 (1.002-1.035); SQUAMOUS EPITHELIAL CELL UR AU 0 /HPF (0-6); UROBILINOGEN, URINE AUTO 0.2 mg/dL (0.0-2.0); WBC, URINE AUTO 0 /HPF (0-3)
[2022-02-16] MEDS ORDERED: MORPHINE 2 MG/ML 1ML VIAL IV ONE (13:30)
[2022-02-16] MEDS ORDERED: METOCLOPRAMIDE INJ 10MG/2ML VIAL (J2765 PER 1) IV ONE (13:30)
[2022-02-16] MEDS ORDERED: FUROSEMIDE 40MG/4ML VIAL (J1940) IV ONE (15:05)
[2022-02-16 18:34] VITALS: BP 158/78
[2022-02-16] MEDS ORDERED: AMLO10TA PO (18:56)
[2022-02-16] MEDS ORDERED: CHLO125TA PO (18:58)
[2022-02-16] MEDS ORDERED: LISI10TA22 PO (18:59)
[2022-02-16] MEDS ORDERED: SPIR-10 PO (19:01)
== END 2022-02-16 19:36 | disposition home or self-care (01) ==
LOC: M ED 08:44
DX: R51.9 Headache, unspecified (principal); I10 Essential (primary) hypertension; R00.1 Bradycardia, unspecified; J32.2 Chronic ethmoidal sinusitis; J32.0 Chronic maxillary sinusitis; Z79.899 Other long term (current) drug therapy
CPT/HCPCS: 70450; 80047; 81001; 84484; 85025; 87631; 93005; 96374; 96375; 99284; J1940; J2270; J2765

== ENCOUNTER → 2022-10-21 | Outpatient (CLI) | payer OTHER ==
[~2022-10-21] MED LIST changes: +AMLO10TA PO; +CHLO125TA PO; +SPIR-10 PO
== END ==
LOC: M SOG 13:07
PROVIDERS: ATTEND Physician Assistant
DX: M79.641 Pain in right hand (principal); M79.642 Pain in left hand; M18.0 Bilateral primary osteoarthritis of first carpometacarpal joints

== ENCOUNTER 2023-06-29 07:30 | Emergency (ER) | payer OTHER, MEDICARE ==
[~2023-06-29] VITALS: Ht 180.3 cm; Wt 67.8 kg
[2023-06-29 10:29] VITALS: BP 110/54; TEMP 98.3; O2SAT 96
== END 2023-06-29 10:31 | disposition home or self-care (01) ==
LOC: M ED 07:30
DX: J00 Acute nasopharyngitis [common cold] (principal); I10 Essential (primary) hypertension; Z79.899 Other long term (current) drug therapy

== ENCOUNTER 2023-07-17 08:35 | Emergency (ER) | payer OTHER ==
[~2023-07-17] VITALS: Ht 180.3 cm; Wt 67.5 kg
[2023-07-17] MEDS ORDERED: unable to obtain (08:46)
[2023-07-17] MEDS ORDERED: NS 2,030 ML in IV 1 EA IV ONE (09:35)
[2023-07-17 09:41] LABS: BASO % 0.6 % (0.0-1.0); EOS # 0.1 10^3/uL (0.0-0.5); EOS % 3.3 % (0.0-3.0); HEMATOCRIT 41.6 % (42.0-52.0); HEMOGLOBIN 13.9 g/dl (13.5-17.5); LYMPH # 0.8 10^3/uL (1.5-5.0); LYMPH % 24.9 % (24.0-44.0); MEAN CORPUSCULAR HEMOGLOBIN 31.7 pg (27.0-33.0); MEAN CORPUSCULAR HGB CONC 33.4 g/dl (32.0-36.5); MONO # 0.3 10^3/uL (0.0-0.8); MONO % 9.5 % (2.0-8.0); NEUTROPHILS # 2.1 10^3/uL (1.5-8.5); NEUTROPHILS % 61.7 % (36.0-66.0); PLATELET COUNT, AUTOMATED 277 10^3/uL (150-450); RED BLOOD COUNT 4.38 10^6/uL (4.30-6.10); WHITE BLOOD COUNT 3.4 10^3/uL (4.0-10.0)
[2023-07-17 09:55] LABS: INR 0.94; PARTIAL THROMBOPLASTIN TIME 26.9 SECONDS (24.8-34.2); PROTHROMBIN TIME 12.3 SECONDS (12.5-14.5)
[2023-07-17 10:29] LABS: RSV AMPLIFICATION NEGATIVE (NEGATIVE)
[2023-07-17 11:41] LABS: AMPHETAMINES LEVEL URINE NEGATIVE (NEGATIVE); BARBITURATES URINE NEGATIVE (NEGATIVE); BENZODIAZEPINES URINE NEGATIVE (NEGATIVE); COCAINE METABOLITE URINE NEGATIVE (NEGATIVE); METHADONE URINE NEGATIVE (NEGATIVE); OPIATES URINE NEGATIVE (NEGATIVE); PHENCYCLIDINE URINE NEGATIVE (NEGATIVE)
[2023-07-17 11:42] LABS: CANNABINOIDS URINE NEGATIVE (NEGATIVE)
[2023-07-17 11:55] LABS: ETHYL ALCOHOL (ETHANOL) 0.004 % (0.000-0.010)
[2023-07-17 11:57] LABS: BLOOD UREA NITROGEN 22 MG/DL (9-23); CALCIUM LEVEL 9.3 MG/DL (8.3-10.6); CARBON DIOXIDE LEVEL 27 MMOL/L (20-31); CHLORIDE LEVEL 105 MMOL/L (98-107); CPK CREATINE PHOSPHOKINASE 116 U/L (46-171); GLOMERULAR FILTRATION RATE > 60.0 (>42); GLUCOSE, FASTING 83 MG/DL (74-106); MAGNESIUM LEVEL 1.9 MG/DL (1.8-2.4); POTASSIUM SERUM 4.2 MMOL/L (3.5-5.1); SODIUM LEVEL 138 MMOL/L (136-145)
[2023-07-17 12:40] LABS: CK-MB VALUE MASS < 1.0 NG/ML (<3.6); MB/CK RELATIVE INDEX 0.86 (< OR =4)
[2023-07-17 12:45] LABS: FREE T4 1.01 NG/DL (0.89-1.76); THYROID STIMULATING HORMONE 1.624 uIU/ML (0.55-4.78)
[2023-07-17 14:34] VITALS: BP 138/65; TEMP 97.2; O2SAT 100
== END 2023-07-17 15:20 | disposition home or self-care (01) ==
LOC: M ED 08:35
DX: I95.1 Orthostatic hypotension (principal); R00.1 Bradycardia, unspecified; I10 Essential (primary) hypertension; G43.909 Migraine, unspecified, not intractable, without status migrainosus; N40.0 Benign prostatic hyperplasia without lower urinary tract symptoms; Z79.811 Long term (current) use of aromatase inhibitors; Z79.1 Long term (current) use of non-steroidal anti-inflammatories (NSAID); Z79.899 Other long term (current) drug therapy

== ENCOUNTER 2023-09-04 09:09 | Emergency (ER) | payer OTHER, MEDICARE ==
[~2023-09-04] VITALS: Ht 180.3 cm; Wt 65.9 kg
[~2023-09-04 09:09] MED LIST changes: +unable to obtain
[2023-09-04 12:28] LABS: BASO % 0.2 % (0.0-1.0); EOS # 0.1 10^3/uL (0.0-0.5); EOS % 2.7 % (0.0-3.0); HEMATOCRIT 39.1 % (42.0-52.0); HEMOGLOBIN 13.2 g/dl (13.5-17.5); LYMPH # 1.1 10^3/uL (1.5-5.0); LYMPH % 27.7 % (24.0-44.0); MEAN CORPUSCULAR HEMOGLOBIN 32.4 pg (27.0-33.0); MEAN CORPUSCULAR HGB CONC 33.8 g/dl (32.0-36.5); MEAN CORPUSCULAR VOLUME 95.8 fl (80.0-96.0); MONO # 0.4 10^3/uL (0.0-0.8); MONO % 9.2 % (2.0-8.0); NEUTROPHILS # 2.5 10^3/uL (1.5-8.5); PLATELET COUNT, AUTOMATED 246 10^3/uL (150-450); RED BLOOD COUNT 4.08 10^6/uL (4.30-6.10); WHITE BLOOD COUNT 4.1 10^3/uL (4.0-10.0)
[2023-09-04 12:55] LABS: BLOOD UREA NITROGEN 29 MG/DL (9-23); CALCIUM LEVEL 9.1 MG/DL (8.3-10.6); CARBON DIOXIDE LEVEL 25 MMOL/L (20-31); CHLORIDE LEVEL 103 MMOL/L (98-107); CREATININE FOR GFR 1.26 MG/DL (0.70-1.30); GLOMERULAR FILTRATION RATE > 60.0 (>42); GLUCOSE, FASTING 82 MG/DL (74-106); POTASSIUM SERUM 5.8 MMOL/L (3.5-5.1); SODIUM LEVEL 135 MMOL/L (136-145)
[2023-09-04] MEDS ORDERED: ACET1TAB55 PO (14:22)
[2023-09-04 14:58] VITALS: BP 113/62; TEMP 97.9; O2SAT 99
== END 2023-09-04 15:00 | disposition home or self-care (01) ==
LOC: M ED 09:09
DX: R51.9 Headache, unspecified (principal); I10 Essential (primary) hypertension; Z79.899 Other long term (current) drug therapy

== ENCOUNTER 2023-10-24 09:59 | Emergency (ER) | payer OTHER ==
[2023-10-24 09:59] VITALS: BP 142/68; TEMP 97.6; O2SAT 97
[2023-10-24] MEDS ORDERED: CEPHALEXIN 500 MG CAP PO ONE (11:55)
[2023-10-24] MEDS ORDERED: NAPROXEN 250 MG TAB PO ONE (11:55)
[2023-10-24] MEDS ORDERED: CEPH500C PO (11:56)
[2023-10-24] MEDS ORDERED: NAPR-849 PO (11:56)
== END 2023-10-24 12:02 | disposition home or self-care (01) ==
LOC: M ED 09:59
DX: L03.114 Cellulitis of left upper limb (principal); M10.9 Gout, unspecified; I10 Essential (primary) hypertension; N40.0 Benign prostatic hyperplasia without lower urinary tract symptoms; Z79.899 Other long term (current) drug therapy

== ENCOUNTER → 2023-11-05 | Outpatient (REF) | payer OTHER ==
[~2023-11-05] MED LIST changes: +CEPH500C PO; +NAPR-849 PO
[2023-11-08 12:07] LABS: PSA % FREE 14.1 % (.); PSA FREE 0.9 ng/mL; PSA TOTAL 6.4 ng/mL (0.0-4.0)
== END ==
LOC: M SFHCCLAY 09:27
PROVIDERS: ATTEND Physician Assistant
DX: R97.20 Elevated prostate specific antigen [PSA] (principal)

== ENCOUNTER 2023-12-29 08:40 | Emergency (ER) | payer MEDICARE, OTHER ==
[~2023-12-29] VITALS: Ht 180.3 cm; Wt 71.6 kg
[2023-12-29 08:41] VITALS: TEMP 98
[2023-12-29] MEDS: FLUORESCEIN OPHTH 1MG STRIP OD ONE (11:55)
[2023-12-29] MEDS: TETRACAINE 0.5% OPHTH SOLN 4ML OD ONE (11:55)
[2023-12-29 12:29] VITALS: BP 153/68; O2SAT 100
== END 2023-12-29 12:37 | disposition home or self-care (01) ==
LOC: M ED 08:40
DX: H40.1130 Primary open-angle glaucoma, bilateral, stage unspecified (principal); H57.11 Ocular pain, right eye; I10 Essential (primary) hypertension; R51.9 Headache, unspecified; Z87.891 Personal history of nicotine dependence; Z79.811 Long term (current) use of aromatase inhibitors; Z79.1 Long term (current) use of non-steroidal anti-inflammatories (NSAID); Z79.899 Other long term (current) drug therapy

== ENCOUNTER 2024-01-07 08:04 | Emergency (ER) | payer MEDICARE, OTHER ==
[~2024-01-07] VITALS: Ht 180.3 cm; Wt 72.1 kg
[2024-01-07] MEDS: FLUORESCEIN OPHTH 1MG STRIP OD ONE (11:15)
[2024-01-07] MEDS: PROPARACAINE 0.5% OPHTH SOL 15ML OD ONE (11:15)
[2024-01-07 11:45] LABS: BASO % 0.3 % (0.0-1.0); EOS # 0.2 10^3/uL (0.0-0.5); EOS % 4.3 % (0.0-3.0); HEMOGLOBIN 13.7 g/dl (13.5-17.5); LYMPH % 25.5 % (24.0-44.0); MEAN CORPUSCULAR HEMOGLOBIN 32.2 pg (27.0-33.0); MEAN CORPUSCULAR HGB CONC 33.4 g/dl (32.0-36.5); MEAN CORPUSCULAR VOLUME 96.5 fl (80.0-96.0); MONO # 0.4 10^3/uL (0.0-0.8); MONO % 11.2 % (2.0-8.0); NEUTROPHILS # 2.2 10^3/uL (1.5-8.5); NEUTROPHILS % 58.4 % (36.0-66.0); PLATELET COUNT, AUTOMATED 226 10^3/uL (150-450); RED BLOOD COUNT 4.25 10^6/uL (4.30-6.10); WHITE BLOOD COUNT 3.8 10^3/uL (4.0-10.0)
[2024-01-07] MEDS ORDERED: ISOVUE-370 76% 100ML VIAL As Ordered ONE (11:46)
[2024-01-07 11:58] LABS: INR 1.05; PARTIAL THROMBOPLASTIN TIME 29.6 SECONDS (24.8-34.2); PROTHROMBIN TIME 13.4 SECONDS (12.5-14.5)
[2024-01-07 12:09] LABS: ALBUMIN 3.9 G/DL (3.2-5.2); BILIRUBIN,DIRECT 0.1 MG/DL (<0.4); BILIRUBIN,TOTAL 0.4 MG/DL (0.3-1.2); TOTAL PROTEIN 7.5 G/DL (5.7-8.2)
[2024-01-07] MEDS ORDERED: AMLO1TAB25 PO (14:54)
[2024-01-07] MEDS ORDERED: D 101000 PO (14:54)
[2024-01-07] MEDS ORDERED: ACET1TAB55 PO (14:54)
[2024-01-07] MEDS ORDERED: LISI10TA22 PO (14:54)
[2024-01-07] MEDS ORDERED: SUMA50TA2 PO (14:54)
[2024-01-07] MEDS ORDERED: SILD100T PO (14:54)
[2024-01-07] MEDS ORDERED: CHLO125TA PO (14:54)
[2024-01-07] MEDS ORDERED: HOME MED LIST COMPLETE! XX SCH (14:55)
[2024-01-07 15:11] VITALS: BP 135/73; TEMP 96.9; O2SAT 99
== END 2024-01-07 15:22 | disposition home or self-care (01) ==
LOC: M ED 08:04
DX: H53.10 Unspecified subjective visual disturbances (principal); I10 Essential (primary) hypertension; R51.9 Headache, unspecified; Z87.891 Personal history of nicotine dependence; F10.10 Alcohol abuse, uncomplicated; Z79.1 Long term (current) use of non-steroidal anti-inflammatories (NSAID); Z79.899 Other long term (current) drug therapy
CPT/HCPCS: 36415; 70450; 70496; 70498; 70551; 80047; 80076; 85025; 85610; 85730; 99284; Q9967

== ENCOUNTER → 2024-03-23 | Outpatient (REF) | payer OTHER ==
[~2024-03-23] MED LIST changes: +AMLO1TAB25 PO; +D 101000 PO; +SILD100T PO; +SUMA50TA2 PO
== END ==
LOC: M SFHCCLAY 09:32
PROVIDERS: ATTEND Physician Assistant
DX: R97.20 Elevated prostate specific antigen [PSA] (principal)

== ENCOUNTER 2024-04-24 09:22 | Day surgery (SDC) | payer OTHER, MEDICARE ==
[~2024-04-24] VITALS: Ht 180.3 cm; Wt 68.9 kg
[~2024-04-24 09:22] MED LIST changes: +LR 1,000 ML IV SCH
[2024-04-24] MEDS: TETRACAINE 0.5% OPHTH SOLN 4ML OD SCH (10:17)
[2024-04-24] MEDS: FLURBIPROFEN 0.03% OPHTH SOLN 2.5 ML OD SCH (10:17)
[2024-04-24] MEDS: ATROPINE SULFATE 1% OPHTH SOLN 2ML BTL OD SCH (10:17)
[2024-04-24] MEDS: PHENYLEPHRINE 2.5% OPHTH SOL 2ML OD SCH (10:17)
[2024-04-24] MEDS ORDERED: fentaNYL 100 MCG/2 ML INJECTION As Ordered ONE (11:46)
[2024-04-24] MEDS ORDERED: MIDAZOLAM INJ 2MG/2ML VIAL As Ordered ONE (11:46)
[2024-04-24] MEDS: LIDOCAINE 1% SDV 5ML VIAL As Ordered ONE (12:00)
[2024-04-24] MEDS: CEFUROXIME 1MG/0.1ML INTRACAMERAL INJ As Ordered ONE (12:01)
[2024-04-24 12:25] VITALS: BP 106/56; TEMP 97.8; O2SAT 100
== END 2024-04-24 12:50 | disposition home or self-care (01) ==
LOC: M SDC 09:22
PROVIDERS: ATTEND Ophthalmology
DX: H25.11 Age-related nuclear cataract, right eye (principal); I10 Essential (primary) hypertension; N40.0 Benign prostatic hyperplasia without lower urinary tract symptoms; M10.9 Gout, unspecified; Z79.899 Other long term (current) drug therapy; Z87.891 Personal history of nicotine dependence
CPT/HCPCS: 66984; J0697; J2250; J3010; V2632

== ENCOUNTER → 2024-05-30 | Outpatient (REF) | payer MEDICARE, OTHER ==
[~2024-05-30] MED LIST changes: -LR 1,000 ML IV SCH
== END ==
LOC: M SMT PRO 12:32
PROVIDERS: ATTEND Urology
DX: R97.20 Elevated prostate specific antigen [PSA] (principal)
CPT/HCPCS: 55700; 76942; G0416; J0665

== ENCOUNTER → 2024-06-07 | Outpatient (REF) | payer OTHER ==
[2024-06-07 12:03] LABS: BLOOD UREA NITROGEN 25 MG/DL (9-23); CALCIUM LEVEL 9.5 MG/DL (8.3-10.6); CARBON DIOXIDE LEVEL 26 MMOL/L (20-31); CHLORIDE LEVEL 105 MMOL/L (98-107); CREATININE FOR GFR 1.44 MG/DL (0.70-1.30); GLOMERULAR FILTRATION RATE > 60.0 (>42); GLUCOSE, FASTING 83 MG/DL (74-106); POTASSIUM SERUM 4.4 MMOL/L (3.5-5.1); SODIUM LEVEL 137 MMOL/L (136-145)
== END ==
LOC: M LABSMT 07:35
PROVIDERS: ATTEND Urology
DX: C61 Malignant neoplasm of prostate (principal)

== ENCOUNTER → 2024-07-13 | Outpatient (CLI) | payer MEDICARE, OTHER | LOC: M RAD 09:42 | PROVIDERS: ATTEND Urology | DX: C61 Malignant neoplasm of prostate (principal); K76.89 Other specified diseases of liver; N28.1 Cyst of kidney, acquired; K57.30 Diverticulosis of large intestine without perforation or abscess without bleeding; R93.7 Abnormal findings on diagnostic imaging of other parts of musculoskeletal system | CPT/HCPCS: 74177; 78306; A9503 ==

== ENCOUNTER → 2024-08-02 | Outpatient (CLI) | payer MEDICARE, OTHER ==
[~2024-08-02] MED LIST changes: +PROHANCE 279.3MG/ML 15ML VIAL ONE
== END ==
LOC: M PLAIMG 09:32
PROVIDERS: ATTEND Urology
DX: C61 Malignant neoplasm of prostate (principal)
CPT/HCPCS: 72158; A9576

== ENCOUNTER 2024-08-30 05:58 | Day surgery (SDC) | payer OTHER, MEDICARE ==
[2024-08-30] VITALS (10 sets, daily range): BP systolic 98–125; BP diastolic 48–61; TEMP 97.5–98.8; O2SAT 98–100
[~2024-08-30] VITALS: Ht 180.3 cm; Wt 69.2 kg
[~2024-08-30 05:58] MED LIST changes: -PROHANCE 279.3MG/ML 15ML VIAL ONE; +THERTAB52 PO
[2024-08-30] MEDS ORDERED: LR 1,000 ML IV SCH (06:15)
[2024-08-30] MEDS ORDERED: HOME MED LIST COMPLETE! XX SCH (06:55)
[2024-08-30] MEDS ORDERED: MIDAZOLAM INJ 2MG/2ML VIAL As Ordered ONE (07:13)
[2024-08-30] MEDS ORDERED: ONDANSETRON 4MG 2ML VIAL As Ordered ONE (07:13)
[2024-08-30] MEDS ORDERED: LIDOCAINE 2% 100MG/5ML SDV (FOR ANES.) As Ordered ONE (07:13)
[2024-08-30] MEDS ORDERED: ROCURONIUM BROMIDE 50MG/5ML VIAL As Ordered ONE (07:13)
[2024-08-30] MEDS ORDERED: propofoL 200 MG/20 ML VIAL As Ordered ONE (07:13)
[2024-08-30] MEDS ORDERED: fentaNYL 100 MCG/2 ML INJECTION As Ordered ONE (07:14)
[2024-08-30] MEDS ORDERED: SUGAMMADEX SODIUM 500 MG/5 ML VIAL (BRIDION) As Ordered ONE (07:14)
[2024-08-30] MEDS ORDERED: KETOROLAC 60MG 2ML VIAL As Ordered ONE (07:14)
[2024-08-30] MEDS ORDERED: ACETAMINOPHEN 1000MG 100ML IV BAG As Ordered ONE (07:15)
[2024-08-30] MEDS ORDERED: HYDROmorphone HCL 2MG/ML 1ML VIAL As Ordered ONE (07:22)
[2024-08-30] MEDS: ceFAZolin SOD 2 GM in IV 1 EA IV ONE (07:33)
[2024-08-30] MEDS: NS 500 ML IV SCH (07:40)
[2024-08-30] MEDS ORDERED: PERCOCET 5MG/325MG TAB PO PRN (07:40)
[2024-08-30] MEDS ORDERED: ACETAMINOPHEN 325 MG TAB PO PRN (07:40)
[2024-08-30] MEDS ORDERED: ONDANSETRON 4MG 2ML VIAL IV PRN ×2 (07:40→11:50)
[2024-08-30] MEDS: HEPARIN SOD (PORCINE) 5000UNITS/ML 1ML VIAL/SYRINGE SQ ONE (07:50)
[2024-08-30] MEDS: DOCUSATE SODIUM 100MG CAPSULE PO SCH (09:00)
[2024-08-30] MEDS ORDERED: ePHEDrine SULFATE 25 MG/5 ML(5MG/ML) SYRINGE As Ordered ONE (10:03)
[2024-08-30] MEDS: LIDOCAINE 1% SDV 30ML VIAL As Ordered ONE (11:35)
[2024-08-30] MEDS ORDERED: oxyCODONE 5MG TAB PO PRN (11:50)
[2024-08-30] MEDS ORDERED: fentaNYL 100 MCG/2 ML INJECTION IV PRN (11:50)
[2024-08-30 13:03] LABS: HEMATOCRIT 34.4 % (42.0-52.0); HEMOGLOBIN 11.5 g/dl (13.5-17.5); MEAN CORPUSCULAR HEMOGLOBIN 32.5 pg (27.0-33.0); MEAN CORPUSCULAR HGB CONC 33.4 g/dl (32.0-36.5); MEAN CORPUSCULAR VOLUME 97.2 fl (80.0-96.0); PLATELET COUNT, AUTOMATED 220 10^3/uL (150-450); RED BLOOD COUNT 3.54 10^6/uL (4.30-6.10); WHITE BLOOD COUNT 8.6 10^3/uL (4.0-10.0)
[2024-08-30 13:31] LABS: CALCIUM LEVEL 8.8 MG/DL (8.3-10.6); CREATININE FOR GFR 1.55 MG/DL (0.70-1.30); GLOMERULAR FILTRATION RATE 56.5 (>42); POTASSIUM SERUM 4.1 MMOL/L (3.5-5.1)
[2024-08-30] MEDS: ceFAZolin SOD 1 GM in DEXTROSE 5% (D5W) ADV/MINI-BAG 50 ML IV SCH (15:36)
[2024-08-30] MEDS: HEPARIN SOD (PORCINE) 5000UNITS/ML 1ML VIAL/SYRINGE SC SCH (15:37)
[2024-08-30] MEDS ORDERED: CHLORTHALIDONE 12.5MG PER 1/2 TABLET PO SCH (21:00)
[2024-08-30] MEDS: CHLORTHALIDONE 12.5MG PER 1/2 TABLET PO SCH (21:23)
[2024-08-30] MEDS: NS 500 ML IV ONE (22:14)
[2024-08-31 00:11] VITALS: BP 109/50; TEMP 98.6; O2SAT 97
[2024-08-31 04:24] VITALS: BP 112/55; TEMP 98.8; O2SAT 98
[2024-08-31] MEDS: PERCOCET 5MG/325MG TAB PO PRN (04:29)
[2024-08-31 06:02] LABS: HEMATOCRIT 31.5 % (42.0-52.0); HEMOGLOBIN 10.5 g/dl (13.5-17.5); MEAN CORPUSCULAR HEMOGLOBIN 32.5 pg (27.0-33.0); MEAN CORPUSCULAR HGB CONC 33.3 g/dl (32.0-36.5); MEAN CORPUSCULAR VOLUME 97.5 fl (80.0-96.0); PLATELET COUNT, AUTOMATED 210 10^3/uL (150-450); RED BLOOD COUNT 3.23 10^6/uL (4.30-6.10); WHITE BLOOD COUNT 5.6 10^3/uL (4.0-10.0)
[2024-08-31 06:30] LABS: BLOOD UREA NITROGEN 26 MG/DL (9-23); CALCIUM LEVEL 8.5 MG/DL (8.3-10.6); CARBON DIOXIDE LEVEL 24 MMOL/L (20-31); CHLORIDE LEVEL 111 MMOL/L (98-107); CREATININE FOR GFR 1.45 MG/DL (0.70-1.30); GLOMERULAR FILTRATION RATE > 60.0 (>42); GLUCOSE, FASTING 85 MG/DL (74-106); POTASSIUM SERUM 3.9 MMOL/L (3.5-5.1); SODIUM LEVEL 140 MMOL/L (136-145)
[2024-08-31 08:00] VITALS: BP 110/61; TEMP 97.7; O2SAT 96
[2024-08-31] MEDS ORDERED: COLA100C5 PO (08:08)
[2024-08-31] MEDS ORDERED: BACT800T5 PO (08:08)
[2024-08-31] MEDS ORDERED: PERCOCET PO (08:08)
== END 2024-08-31 13:14 | disposition home or self-care (01) ==
LOC: M SDC 05:58 → M MSPAV 13:44 → M SDC 08-31 13:14
PROVIDERS: ATTEND Urology
DX: C61 Malignant neoplasm of prostate (principal); G47.9 Sleep disorder, unspecified; Z79.899 Other long term (current) drug therapy; Z87.891 Personal history of nicotine dependence
CPT/HCPCS: 36415; 38571; 55866; 80048; 85027; 86850; 86900; 86901; 88307; 88309; 96365; 96372; 96376; J0131; J0665; J0690; J1100; J1171; J1885; J2405; J3010; S2900

== ENCOUNTER → 2024-09-08 | Outpatient (REF) | payer OTHER ==
[~2024-09-08] MED LIST changes: +BACT800T5 PO; +COLA100C5 PO; +PERCOCET PO
== END ==
LOC: M SFHCCLAY 08:04
PROVIDERS: ATTEND Nurse Practitioner Family
DX: C61 Malignant neoplasm of prostate (principal)

== ENCOUNTER → 2024-09-27 | Outpatient (REF) | payer OTHER | LOC: M LABDRAWC 07:42 | PROVIDERS: ATTEND Nurse Practitioner Family | DX: C61 Malignant neoplasm of prostate (principal) ==

== ENCOUNTER 2024-10-16 10:45 | Day surgery (SDC) | payer OTHER, MEDICARE ==
[~2024-10-16] VITALS: Ht 180.3 cm; Wt 70.8 kg
[~2024-10-16 10:45] MED LIST changes: +LR 1,000 ML IV SCH
[2024-10-16] MEDS: FLURBIPROFEN 0.03% OPHTH SOLN 2.5 ML OS SCH (11:16)
[2024-10-16] MEDS: PHENYLEPHRINE 2.5% OPHTH SOL 2ML OS SCH (11:16)
[2024-10-16] MEDS: TETRACAINE 0.5% OPHTH SOLN 4ML OS SCH (11:16)
[2024-10-16] MEDS: CYCLOPENTOLATE 1% OPHTH SOLN 2ML BTL OS SCH (11:16)
[2024-10-16] MEDS ORDERED: fentaNYL 100 MCG/2 ML INJECTION As Ordered ONE (12:02)
[2024-10-16] MEDS ORDERED: MIDAZOLAM INJ 2MG/2ML VIAL As Ordered ONE (12:02)
[2024-10-16] MEDS: LIDOCAINE 1% SDV 5ML VIAL As Ordered ONE (12:46)
[2024-10-16] MEDS: CEFUROXIME 1MG/0.1ML INTRACAMERAL INJ As Ordered ONE (12:47)
[2024-10-16 12:59] VITALS: BP 123/62; TEMP 97.4; O2SAT 98
== END 2024-10-16 13:13 | disposition home or self-care (01) ==
LOC: M SDC 10:45
PROVIDERS: ATTEND Ophthalmology
DX: H25.9 Unspecified age-related cataract (principal); I10 Essential (primary) hypertension; Z79.899 Other long term (current) drug therapy; Z98.41 Cataract extraction status, right eye
CPT/HCPCS: 66984; J0697; J2250; J3010; V2632

== ENCOUNTER 2025-05-15 08:07 | Emergency (ER) | payer OTHER, MEDICARE ==
[~2025-05-15] VITALS: Ht 180.3 cm; Wt 68.4 kg
[~2025-05-15 08:07] MED LIST changes: +AMLO-751 PO; -AMLO10TA PO; -FLOM0.4C39 PO; -LR 1,000 ML IV SCH; +TAMS-18 PO
[2025-05-15 10:18] LABS: BASO # 0.0 10^3/uL (0.0-0.2); BASO % 0.3 % (0.0-1.0); EOS # 0.1 10^3/uL (0.0-0.5); EOS % 3.2 % (0.0-3.0); LYMPH # 0.6 10^3/uL (1.5-5.0); LYMPH % 19.3 % (24.0-44.0); MONO # 0.3 10^3/uL (0.0-0.8); MONO % 10.8 % (2.0-8.0); NEUTROPHILS # 2.1 10^3/uL (1.5-8.5); NEUTROPHILS % 66.1 % (36.0-66.0); PLATELET COUNT, AUTOMATED 212 10^3/uL (150-450)
[2025-05-15] MEDS ORDERED: ISOVUE-370 76% 100 ML VIAL As Ordered ONE (10:23)
[2025-05-15 10:50] LABS: CALCIUM LEVEL 9.1 MG/DL (8.3-10.6); CARBON DIOXIDE LEVEL 27.0 MMOL/L (20-31); CHLORIDE LEVEL 103.0 MMOL/L (98-107); CREATININE FOR GFR 1.6 MG/DL (0.70-1.30); GLOMERULAR FILTRATION RATE 44.1 (>42); POTASSIUM SERUM 4.4 MMOL/L (3.5-5.1); SODIUM LEVEL 139.0 MMOL/L (136-145)
[2025-05-15 11:18] LABS: INR 0.96
[2025-05-15] MEDS: NS (Normal Saline) 0.9% 1,000 ML IV ONE (11:30)
[2025-05-15 11:53] LABS: CK-MB VALUE MASS 1.6 NG/ML (<3.6); CPK CREATINE PHOSPHOKINASE 112.0 U/L (46-171); MB/CK RELATIVE INDEX 1.42 (< OR =4)
[2025-05-15 12:07] LABS: MAGNESIUM LEVEL 2.1 MG/DL (1.8-2.4)
[2025-05-15] MEDS: ACETAMINOPHEN *IV* 1,000 MG in IV 1 EA IV ONE (12:23)
[2025-05-15] MEDS: diphenhydrAMINE 50 MG/ML VIAL IV ONE (12:23)
[2025-05-15] MEDS ORDERED: MM S100C PO (12:40)
[2025-05-15] MEDS ORDERED: HOME MED LIST COMPLETE! XX SCH (12:40)
[2025-05-15 13:07] VITALS: O2SAT 100
[2025-05-15 13:42] VITALS: BP 150/67; TEMP 97.5
[2025-05-15 14:25] LABS: ERYTHROCYTE SEDIMENTATION RATE 60 mm/hr (0-20)
== END 2025-05-15 14:13 | disposition home or self-care (01) ==
LOC: M ED 08:07
DX: R51.9 Headache, unspecified (principal); R00.1 Bradycardia, unspecified; M19.011 Primary osteoarthritis, right shoulder; I10 Essential (primary) hypertension; N40.0 Benign prostatic hyperplasia without lower urinary tract symptoms; Z79.899 Other long term (current) drug therapy; Z79.810 Long term (current) use of selective estrogen receptor modulators (SERMs)
CPT/HCPCS: 70450; 70496; 70498; 71045; 73030; 80047; 80048; 82550; 82553; 83735; 84443; 84484; 85025; 85610; 85652; 85730; 93005; 93041; 94760; 96361; 96365; 96375; 99285; J0131; J1200; J2765; Q9967

== ENCOUNTER → 2025-08-08 | Outpatient (REF) | payer OTHER ==
[~2025-08-08] MED LIST changes: +HYDR12.510 PO; -HYDR12CA PO; +MM S100C PO
== END ==
LOC: M SFHCCLAY 07:30
PROVIDERS: ATTEND Urology
DX: C61 Malignant neoplasm of prostate (principal)

== ENCOUNTER → 2025-10-31 | Outpatient (REF) | payer OTHER | LOC: M SFHCCLAY 07:57 | PROVIDERS: ATTEND Urology | DX: C61 Malignant neoplasm of prostate (principal) ==